=== PATIENT | female | born 1965 | race Caucasian/White ===

== ENCOUNTER 2021-01-14 17:41 | Emergency (ER) | payer OTHER ==
[~2021-01-14] VITALS: Ht 167.6 cm; Wt 63.5 kg
[2021-01-14] MEDS ORDERED: ORPHENADRINE C100 MG PO (21:36)
[2021-01-14] MEDS ORDERED: KETO10TA2 PO (21:36)
== END 2021-01-14 22:42 ==
LOC: ER 17:41
DX: M75.51 Bursitis of right shoulder (principal); M77.8 Other enthesopathies, not elsewhere classified

== ENCOUNTER 2021-05-19 07:10 | Day surgery (SDC) | payer OTHER ==
[~2021-05-19 07:10] MED LIST: CLONAZE PO; KETO10TA2 PO; ORPHENADRINE C100 MG PO
== END 2021-05-19 16:10 | disposition home or self-care (01) ==
LOC: CIR.AMB 07:10
PROVIDERS: ATTEND Obstetrics & Gynecology
DX: N72 Inflammatory disease of cervix uteri (principal); Z20.822 Contact with and (suspected) exposure to COVID-19